=== PATIENT | female | born 1950 | race Caucasian/White ===

== ENCOUNTER 2024-02-16 18:31 | Emergency (ER) | payer MEDICARE, BC, SELFPAY ==
[2024-02-16 18:43] VITALS: BP 172/85
--- NOTE | 2024-02-16 22:51 | ED.SKININJ ---
HPI-Injury
General
Chief Complaint: Head Injury
Source: patient
Exam Limitations: none
Time Seen by Provider: 02/16/24 20:31
Nursing documentation reviewed up to this point in time: agreed with
History of Present Illness-Injury
Is this injury a work related problem?: No
Is pt an associate of [facility]?: No
Initial Injury comments:
Granddaughter dropped a heavy book over railing hitting patient on top of head. Book fell approx 15ft. No LOC. Large hematoma to upper forehead. Injury occurred just vessel captain
Past History
Past History
ED Past Medical History: None
ED Past Surgical History: None
Review of Systems
Review of Systems
Allergies reviewed?: Yes
All Other Systems: ROS reviewed and negative except as documented in HPI and ROS
Constitutional: Reports no symptoms
EENT: Reports no symptoms
Musculoskeletal: Reports no symptoms
Skin: Reports other (hematoma to forehead)
Neurological: Reports headache
Psychiatric: Reports no symptoms
Phy Exam
General Physical Exam
General Presentation: well appearing and no apparent distress
General age: appears stated age
General Skin: warm and dry
General Habitus: normal
General Mental: alert
Eye Exam
Eye Exam: PERRL, EOMI, conjunctiva normal and globe normal
Neurological Exam
Neurological Exam: alert, oriented x3, CN II-XII intact, no motor deficits, no sensory deficits, speech normal and normal gait
Musculoskeletal Exam
Musculoskeletal Exam: full ROM and neuro vasc intact
Skin Exam
Skin Exam: normal color, warm/dry and no rash
Psychiatric Exam
Psychiatric Exam: normal mood/affect
Course
Orders/Labs/Results
Orders:
Orders
02/16/24 20:46
CT Head W/o Iv Contrast Urgent
Comment:
Reason For Exam: TRAUMA
Vital Signs
Initial and Last Documented VS:
Initial Vital Signs
Temp Pulse Resp BP Pulse Ox
98.7 F 78 20 172/85 99
02/16/24 18:43 02/16/24 18:43 02/16/24 18:43 02/16/24 18:43 02/16/24 18:43
Last Documented Vital Signs
Temp Pulse Resp BP Pulse Ox
98.7 F 78 20 172/85 99
02/16/24 18:43 02/16/24 18:43 02/16/24 18:43 02/16/24 18:43 02/16/24 18:43
*Radiology
Radiology exam reviewed: radiology read reviewed
*Pulse Oximetry
Patient hypoxic: no
*Critical Care Note
Total Time (30-74mins, 75-104mins- exclusive of procedures): Not Applicable
ED Attending Note
-
Portions of this chart may have been created with voice recognition software.� Occasional wrong word or��sound alike� substitutions may have occurred due to the inherent limitations of voice recognition software.
Discharge Plan
Departure
Patient Disposition: Home (Routine Discharge)
Date of Disposition: 02/16/24
Time of Disposition: 21:21
Patient with high blood pressure during this ER visit?: No
Condition: Good
Covid-19: Not Applicable
Discharge Problem:
Head injury
Instructions: Head Injury in Adults (DC), Contusion (DC)
Referrals:
Ino Webster, [Family Provider] - Follow up in 2-3 days
Interventions
Interventions:
*Nursing Disposition Last Done: 02/16/24 21:35
ED- Neurological Assessment Last Done: 02/16/24 21:35
ED-Skin Assessment Last Done: 02/16/24 21:35
Discharge Date and Time
Discharge Date/Time: 02/16/24 21:36
Print Language: BELARUSIAN
== END 2024-02-16 21:36 | disposition home or self-care (01) ==
LOC: EMR 18:31
PROVIDERS: EMERGENCY PHYSICIAN Emergency Medicine; FAMILY PHYSICIAN Family Medicine
DX: S09.90XA Unspecified injury of head, initial encounter (principal); W22.8XXA Striking against or struck by other objects, initial encounter
CPT/HCPCS: 99284; 70450